=== PATIENT | female | born 1990 | race Caucasian/White ===

== ENCOUNTER 2016-06-09 00:05 | Emergency (ER) | payer OTHER ==
--- NOTE | 2016-06-09 02:02 | ED ORDER SUMMARY ---
..... Patient: DELEBRT MCGUIRE OrderSheet [facility] VisitID: [id number] [place] [address] 25y, F Registration Date/Time: 06/09/2016 ORDER SHEET Weight: 66.2 kg (stated) Allergies: No Known Drug Allergy GENERAL ORDERS: MEDICATION ORDERS: IV FLUIDS: IV Saline Lock (00:31 06/09/2016 Nhan Llamas.NBehzad verbal order read back to Fartun Mason) (0:32 Nhan R.N.) IV NS : initial bolus none -, then 1000 mL/hr for X1 (NOW) (00:46 06/09/2016 Fartun Mason) (Ack 1:04 Fidelina R.N.) (1:11 Fidelina R.N.) Zofran IV 4 mg (NOW) (00:46 06/09/2016 Fartun Mason) (Ack 1:04 Fidelina R.N.) (1:11 Fidelina R.N.) ORDER SHEET NOTES: [Electronically signed by Oliver Harrington Dr. (02:05 06/09/2016)] [Electronically signed by Evan Peñaloza R.N. (02:06/09/2016)] [Electronically locked/signed by Evan Peñaloza R.N. (02:06/09/2016)]
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
--- NOTE | 2016-06-09 02:02 | ED ORDER SUMMARY ---
..... Patient: DELBERT MCGUIRE OrderSheet [facility] VisitID: [id number] [place] [address] 25y, F Registration Date/Time: 06/09/2016 ORDER SHEET Weight: 66.2 kg (stated) Allergies: No Known Drug Allergy GENERAL ORDERS: MEDICATION ORDERS: IV FLUIDS: IV Saline Lock (00:31 06/09/2016 Nhan Llamas.NBehzad verbal order read back to Fartun Mason) (0:32 Nhan R.N.) IV NS : initial bolus none -, then 1000 mL/hr for X1 (NOW) (00:46 06/09/2016 Fartun Mason) (Ack 1:04 Fidelina R.N.) (1:11 Fidelina R.N.) Zofran IV 4 mg (NOW) (00:46 06/09/2016 Fartun Mason) (Ack 1:04 Fidelina R.N.) (1:11 Fidelina R.N.) ORDER SHEET NOTES: [Electronically signed by Oliver Harrington Dr. (02:05 06/09/2016)] [Electronically signed by Evan Peñaloza R.N. (02:06/09/2016)] [Electronically locked/signed by Evan Peñaloza R.N. (02:06/09/2016)]
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
--- NOTE | 2016-06-09 02:15 | ED DISCHARGE INSTRUCTIONS ---
Patient: DELBERT MCGUIRE General Instructions [facility] VisitID: [id number] [place] [address] 25y, F Registration Date/Time: 06/09/2016 Acute viral gastroenteritis. INSTRUCTIONS Drink plenty of fluids. Warnings: GENERAL WARNINGS: Return or contact your physician immediately if your condition worsens or changes unexpectedly, if not improving as expected, or if other problems arise. SPECIFICALLY, return if you develop pain in the abdomen or the inability to keep fluids down. Your Current Medications: CONTINUE TAKING THE FOLLOWING MEDICATIONS: Hydrocodone-Acetaminophen Oral : 5 mg one-two tabs 4x a day, prn. Naproxen Oral : 550 mg 2x a day. Prescription Medications: Zofran (orally disintegrating tablets) 4 mg: take 1 orally every 6 hours as needed for nausea and vomiting. Dispense ten (10). No refill. Substitution is permissible. Follow-up: Follow up with your doctor in about two days. Call for an appointment. Screening today revealed the patient's blood pressure to be in the normal range. ADDITIONAL INFORMATION Viral Gastroenteritis (6Yr-Adult) Gastroenteritis is another name for thestomach flu.It is most often caused by a virus that affects the stomach and intestinal tract. Symptoms include stomach cramping and fever, vomiting and/or diarrhea, and can last from 2 to 7 days. The danger from repeated vomiting or diarrhea is dehydration. This is the loss of too much water and minerals from the body. When this occurs, body fluids must be replaced. Antibiotics are not effective for this illness, but simple home treatment will be helpful. Home Care If symptoms are severe, rest at home for the next 24 hours. Avoid tobacco, caffeine, and alcohol use, which can worsen symptoms. Acetaminophen (Tylenol) or ibuprofen (Motrin, Advil) may be usedfor fever or pain unless another medication was prescribed. NOTE: If you have chronic liver or kidney disease or ever had a stomach ulcer or GI bleeding, talk with your doctor before using these medicines. Aspirin should never be used in anyone under 18 years of age who is ill with a fever. It may cause severe liver damage. If medicines for diarrhea or vomiting were prescribed, be sure they are takenonly as directed. If vomiting, drink small amounts of clear fluids (such as water, sports drinks, clear sodas) at frequent intervals to prevent dehydration. Start with 1 to 2 tablespoons every 10 minutes. Once vomiting stops, follow these guidelines: During The First 12 To 24 Hours follow the diet below: Beverages: Sport drinks like Gatorade, soft drinks without caffeine; kenneth priscilla, mineral water (plain or flavored), decaffeinated tea and coffee. Soups: Clear broth, consomm and bouillon Desserts: Plain gelatin (Jell-O), Popsicles and fruit juice bars. During The Next 24 Hours you may add the following to the above: Hot cereal, plain toast, bread, rolls, crackers Plain noodles, rice, mashed potatoes, chicken noodle or rice soup Unsweetened canned fruit (avoid pineapple), bananas Limit fat intake to less than 15 grams per day by avoiding margarine, butter, oils, mayonnaise, sauces, gravies, fried foods, peanut butter, meat, poultry, and fish. Limit fiber; avoid raw or cooked vegetables, fresh fruits (except bananas), and bran cereals. Limit caffeine and chocolate. Do not use spices or seasonings except salt. During The Next 24 Hours The patient can gradually resume a normal diet as symptoms lessen. Preventing Spread Hand washing with soap and water is the best way to prevent the spread of viruses. Caregivers should wash their hands before andafter touching the sick person. The sick person, as well as everyone in the family,should wash their hands after using the toilet and before meals. Clean the toilet after each use. People with diarrhea should not prepare food for others. If you are preparing your own foods, wash your hands before and after. Follow Up with your doctor as advised. Call your doctor if you are not improving over the next 2 to 3 days. If a stool (diarrhea) sample was taken, you may call in 2 days (or as directed) for the results. Get Prompt Medical Attention if any of the following occur: Increasing abdominal pain Continued vomiting (unable to keep liquids down) Frequent diarrhea (more than 5 times a day) Blood in vomit or stool (black or red color) Dark urine, reduced urine output, or extreme thirst Weakness, dizziness, fainting Drowsiness, confusion, stiff neck, or seizure Fever of 100.4F (38C) oral or higher, not better with fever medication New rash Ondansetron Oral disintegrating tablet What is this medicine? ONDANSETRON (on PAGE se nisreen) is used to treat nausea and vomiting caused by chemotherapy. It is also used to prevent or treat nausea and vomiting after surgery. How should I use this medicine? These tablets are made to dissolve in the mouth. Do not try to push the tablet through the foil backing. With dry hands, peel away the foil backing and gently remove the tablet. Place the tablet in the mouth and allow it to dissolve, then swallow. While you may take these tablets with water, it is not necessary to do so. Talk to your engineering technology instructor regarding the use of this medicine in children. Special care may be needed. What side effects may I notice from receiving this medicine? Side effects that you should report to your doctor or health med care manager as soon as possible: allergic reactions like skin rash, itching or hives, swelling of the face, lips, or tongue breathing problems dizziness fast or irregular heartbeat feeling faint or lightheaded, falls fever and chills swelling of the hands and feet tightness in the chest Side effects that usually do not require medical attention (report to your doctor or health med care manager if they continue or are bothersome): constipation or diarrhea headache What may interact with this medicine? Do not take this medicine with any of the following medications: -apomorphine -cisapride -dofetilide -dronedarone -pimozide -thioridazine -ziprasidone This medicine may also interact with the following medications: -carbamazepine -phenytoin -rifampicin -tramadol -other medicines that prolong the QT interval (cause an abnormal heart rhythm) What if I miss a dose? If you miss a dose, take it as soon as you can. If it is almost time for your next dose, take only that dose. Do not take double or extra doses. Where should I keep my medicine? Keep out of the reach of children. Store between 2 and 30 degrees C (36 and 86 degrees F). Throw away any unused medicine after the expiration date. What should I tell my health care provider before I take this medicine? They need to know if you have any of these conditions: heart disease history of irregular heartbeat liver disease low levels of magnesium or potassium in the blood an unusual or allergic reaction to ondansetron, granisetron, other medicines, foods, dyes, or preservatives or trying to get breast-feeding What should I watch for while using this medicine? Check with your doctor or health med care manager as soon as you can if you have any sign of an allergic reaction. You have been given the following additional information: Gastroenteritis, Viral (6Y-Adult) Ondansetron Oral disintegrating tablet (Electronically signed by Oliver Harrington Dr. 06/09/2016 2:05)
--- NOTE | 2016-06-09 02:15 | ED MAR SUMMARY ---
..... Medication Administration Record [facility] [address] [place] [address] Patient: DELBERT MCGUIRE Visit ID: [id number] 25y, F Weight: 66.2 kg Height/Length: 66 in BMI: 23.6 ALLERGIES: No Known Drug Allergy Start 01:07 06/09/2016 Evan Peñaloza RBehzadN., Stop 02:07 06/09/2016 Evan Peñaloza R.N. Medication Administered: IV NS (SALINE), Dose: IV Fluids over 1 hour(s), Rate: 1000 mL/hr, Dispensed: 1000 mL bag, Site: #1 left AC. Medication Ordered: IV NS : initial bolus none -, then 1000 mL/hr for X1 (NOW). Given 01:09 06/09/2016 Evan Peñaloza, RBehzadN. Medication Administered: ZOFRAN [IVP] (ONDANSETRON HCL), Dose: 4 mg IVP over 2 minute(s), Site: #1 left AC. Medication Ordered: Zofran IV 4 mg (NOW).
--- NOTE | 2016-06-09 02:15 | ED MAR SUMMARY ---
..... Medication Administration Record [facility] [address] [place] [address] Patient: DELBERT MCGUIRE Visit ID: [id number] 25y, F Weight: 66.2 kg Height/Length: 66 in BMI: 23.6 ALLERGIES: No Known Drug Allergy Start 01:07 06/09/2016 Evan Peñaloza RBehzadN., Stop 02:07 06/09/2016 Evan Peñaloza R.N. Medication Administered: IV NS (SALINE), Dose: IV Fluids over 1 hour(s), Rate: 1000 mL/hr, Dispensed: 1000 mL bag, Site: #1 left AC. Medication Ordered: IV NS : initial bolus none -, then 1000 mL/hr for X1 (NOW). Given 01:09 06/09/2016 Evan Peñaloza, RBehzadN. Medication Administered: ZOFRAN [IVP] (ONDANSETRON HCL), Dose: 4 mg IVP over 2 minute(s), Site: #1 left AC. Medication Ordered: Zofran IV 4 mg (NOW).
--- NOTE | 2016-06-09 02:15 | ED MED RECONCILIATION SUMMARY ---
Patient: DELBERT MCGUIRE Medication Reconciliation Report [facility] VisitID: [id number] [place] [address] 25y, F Registration Date/Time: 06/09/2016 Weight: 66.2 kg Height/Length: 66 in. BMI: 23.6 ALLERGIES: No Known Drug Allergy The patient's Home Medications are listed below: CONTINUE TAKING THE FOLLOWING MEDICATIONS: Hydrocodone-Acetaminophen Oral 5 mg one-two tabs, 4x a day Naproxen Oral 550 mg, 2x a day The source(s) of the original Home Medication information: patient The following Medications were given to the patient in the Emergency Department: IV NS IV Fluids bolus 0, then 1000 mL/hr, administered: 06/09/2016 1:07:00 AM Zofran [IVP] IVP 4 mg, administered: 06/09/2016 1:09:00 AM The following Medications were prescribed to the patient: Zofran (orally disintegrating tablets) 4 mg: take 1 orally every 6 hours as needed for nausea and vomiting. Dispense ten (10). No refill. Substitution is permissible. -- Oliver Harrington Dr.
--- NOTE | 2016-06-09 02:15 | ED MED RECONCILIATION SUMMARY ---
Patient: DELBERT MCGUIRE Medication Reconciliation Report [facility] VisitID: [id number] [place] [address] 25y, F Registration Date/Time: 06/09/2016 Weight: 66.2 kg Height/Length: 66 in. BMI: 23.6 ALLERGIES: No Known Drug Allergy The patient's Home Medications are listed below: CONTINUE TAKING THE FOLLOWING MEDICATIONS: Hydrocodone-Acetaminophen Oral 5 mg one-two tabs, 4x a day Naproxen Oral 550 mg, 2x a day The source(s) of the original Home Medication information: patient The following Medications were given to the patient in the Emergency Department: IV NS IV Fluids bolus 0, then 1000 mL/hr, administered: 06/09/2016 1:07:00 AM Zofran [IVP] IVP 4 mg, administered: 06/09/2016 1:09:00 AM The following Medications were prescribed to the patient: Zofran (orally disintegrating tablets) 4 mg: take 1 orally every 6 hours as needed for nausea and vomiting. Dispense ten (10). No refill. Substitution is permissible. -- Oliver Harrington Dr.
== END 2016-06-09 02:13 | disposition home or self-care (01) ==
LOC: ED SRH 00:05
DX: A08.4 Viral intestinal infection, unspecified (principal); Z79.891 Long term (current) use of opiate analgesic; Z79.1 Long term (current) use of non-steroidal anti-inflammatories (NSAID)